=== PATIENT | male | born 1975 | race Hispanic/Latino ===

== ENCOUNTER 2024-03-02 10:40 | Emergency (ER) | payer SELFPAY ==
[2024-03-02 11:11] LABS: Absolute Basophils 0.1 K/uL (0-0.5); Absolute Eosinophils 0.1 K/uL (0-0.5); Absolute Lymphocytes (CBC) 2.3 K/uL (0.7-4.9); Absolute Monocytes 0.8 K/uL (0.1-1.3); Absolute Neutrophil 3.9 K/uL (1.8-8.0); Basophils % 0.9 % (0-1.3); Eosinophils % 1.8 % (0-4.4); Hematocrit 44.6 % (39.6-49.0); Hemoglobin 14.8 g/dL (13.6-17.9); Lymphocytes % 31.8 % (15.3-44.8); MCH 30.9 pg (27.0-35.0); MCHC 33.3 g/dL (32.0-36.0); MCV 92.8 fL (80-100); MPV 9.5 fL (7.6-11.3); Monocytes % 11.4 % (3.3-12.3); Neutrophils % 54.1 % (41.7-73.7); Platelets 222 thou/uL (152-406); RBC Red Blood Cell Count 4.81 M/uL (4.33-5.43); Red Cell Distribution Width 14.1 % (12.1-15.2)
[2024-03-02 11:20] LABS: PT Prothrombin Time 12.5 SECONDS (9.4-12.5); Protime INR 1.14
[2024-03-02 11:35] LABS: ALT/SGPT 85 U/L (16-61); AST/SGOT 31 U/L (15-37); Albumin 4.1 g/dL (3.4-5.0); Albumin/Globulin Ratio 1.1 (1.1-1.8); Alkaline Phosphatase 80 U/L (45-117); Anion Gap 8.5 mEq/L (5.0-15.0); BUN Blood Urea Nitrogen 26 mg/dL (7-18); Bicarbonate 28 mEq/L (21-32); Bilirubin Direct 0.3 mg/dL (0-0.2); Bilirubin Indirect, Calculated 1.6 mg/dL (0.2-0.8); Bilirubin Total 1.9 mg/dL (0.2-1.0); Globulin 3.7 g/dL (2.3-3.5); Glomerular Filtration Rate 67 ml/min (=/>90); Glucose Level 92 mg/dL (74-106); Magnesium 2.2 mg/dL (1.6-2.4); NT PRO-BNP < 5 pg/mL (<125); Potassium 4.5 mEq/L (3.5-5.1); Protein, Total 7.8 g/dL (6.4-8.2); Sodium Level 137 mEq/L (136-145); Troponin High Sensitivity 3.1 pg/mL (<58.9)
--- NOTE | 2024-03-02 12:06 | EDPHYS ---
Physician Documentation [facility] Name: Abdulkadir Baker Age: 48 yrs Sex: Male : 1975 Arrival Date: 03/02/2024 Time: 10:40 Bed 13 Private MD: ED Physician Rubin Matute HPI: 03/02 12:02 This 48 yrs old Male presents to ER via Ambulatory with complaints of Chest sp3 Pain. 12:02 48-year-old male with history of hypertension now presents to the ED with chief sp3 complaint off-and-on chest pain for 2 weeks. Patient saw his regular physician who did an EKG and other unknown blood work. Patient has not had a stress test has not been seen cardiology. He denies any other symptoms including headache, fever, URI symptoms, cough, shortness of breath, back pain, abdominal pain, nausea, vomiting, diarrhea, syncope, near syncope, rash, known sick contacts, prolonged immobilization, calf pain, or any other signs or symptoms on ROS at this time.. Historical: - Allergies: 10:50 No Known Allergies; nj1 - PMHx: 10:50 Hypertensive disorder; nj1 - Immunization history:: Client reports receiving the 2nd dose of the Covid vaccine. - Infectious Disease History:: Denies. - Social history:: Smoking status: Patient denies any tobacco usage or history of. ROS: 12:04 Constitutional: Negative for fever, chills, and weight loss, Eyes: Negative for injury, sp3 pain, redness, and discharge, ENT: Negative for injury, pain, and discharge, Neck: Negative for injury, pain, and swelling, Respiratory: Negative for shortness of breath, cough, wheezing, and pleuritic chest pain, Abdomen/GI: Negative for abdominal pain, nausea, vomiting, diarrhea, and constipation, Back: Negative for injury and pain, MS/Extremity: Negative for injury and deformity, Skin: Negative for injury, rash, and discoloration, Neuro: Negative for headache, weakness, numbness, tingling, and seizure, Psych: Negative for depression, anxiety, suicide ideation, homicidal ideation, and hallucinations, Allergy/Immunology: Negative for hives, rash, and allergies, Endocrine: Negative for neck swelling, polydipsia, polyuria, polyphagia, and marked weight changes, Hematologic/Lymphatic: Negative for swollen nodes, abnormal bleeding, and unusual bruising, 12:04 All other systems are negative, Exam: 11:13 ECG was reviewed by the Attending Physician. EKG demonstrates normal sinus rhythm at 71 sp3 bpm with normal intervals, normal QRS, normal axis, normal ST/T-segment's without evidence of acute ischemia. 12:04 Constitutional: This is a well developed, well nourished patient who is awake, alert, sp3 and in no acute distress. Head/Face: Normocephalic, atraumatic. Eyes: Pupils equal round and reactive to light, extra-ocular motions intact. Lids and lashes normal. Conjunctiva and sclera are non-icteric and not injected. Cornea within normal limits. Periorbital areas with no swelling, redness, or edema. ENT: Nares patent. No nasal discharge, no septal abnormalities noted. External auditory canals are clear. Oropharynx with no redness, swelling, or masses, exudates, or evidence of obstruction, uvula midline. Mucous membranes moist. Neck: Trachea midline, no thyromegaly or masses palpated, and no cervical lymphadenopathy. Supple, full range of motion without nuchal rigidity, or vertebral point tenderness. No Meningismus. Chest/axilla: Normal chest wall appearance and motion. Nontender with no deformity. No lesions are appreciated. Cardiovascular: Regular rate and rhythm with a normal S1 and S2. No gallops, murmurs, or rubs. Normal PMI, no JVD. No pulse deficits. Respiratory: Lungs have equal breath sounds bilaterally, clear to auscultation and percussion. No rales, rhonchi or wheezes noted. No increased work of breathing, no retractions or nasal flaring. Abdomen/GI: Soft, non-tender, with normal bowel sounds. No distension or tympany. No guarding or rebound. No evidence of tenderness throughout. Back: No spinal tenderness. No costovertebral tenderness. Full range of motion. Skin: Warm, dry with normal turgor. Normal color with no rashes, no lesions, and no evidence of cellulitis. MS/ Extremity: Pulses equal, no cyanosis. Neurovascular intact. Full, normal range of motion. Neuro: Awake and alert, GCS 15, oriented to person, place, time, and situation. Cranial nerves II-XII grossly intact. Motor strength 5/5 in all extremities. Sensory grossly intact. Cerebellar exam normal. Normal gait. Psych: Awake, alert, with orientation to person, place and time. Behavior, mood, and affect are within normal limits. Vital Signs: 10:45 BP 128 / 89; Pulse 66; Resp 16; Temp 99.5(O); Pulse Ox 100% ; Weight 104.33 kg; Height nj1 5 ft. 10 in. ; Pain 7/10; 12:18 BP 115 / 65; Pulse 74; Resp 18; Pulse Ox 100% on R/A; mb9 10:45 Body Mass Index 32.93 (104.33 kg, 178 cm) nj1 10:45 Pain Scale: Adult nj1 MDM: 10:41 Patient medically screened. [facility] 12:04 Data reviewed: vital signs, nurses notes, lab test result(s), EKG, radiologic studies. 3 ED course: 48-year-old male with hypertension and now nonspecific chest pain. Symptoms been going on for 2 weeks. Troponin here is negative. Patient has a low heart score and we will safely discharge him home with cardiology follow-up. Clinically I am not highly suspicious for acute coronary syndrome, pulmonary embolism, aortic pathology, or any other critical process at this time.. 03/02 10:51 Order name: Basic Metabolic Panel; Complete Time: 11: 3 03/02 10:51 Order name: CBC with Diff; Complete Time: :03/02 10:51 Order name: LFT's; Complete Time: 11:52 03/02 10:51 Order name: Magnesium; Complete Time: 11:52 03/02 10:51 Order name: NT PRO-BNP; Complete Time: 11:52 03/02 10:51 Order name: PT-INR; Complete Time: 11:52 03/02 10:51 Order name: Troponin HS; Complete Time: 11:52 3 03/02 10:51 Order name: XRAY Chest (1 view); Complete Time: 12:19 3 03/02 10:51 Order name: Cardiac monitoring; Complete Time: 11:59 3 03/02 10:51 Order name: EKG - Nurse/Tech; Complete Time: 11:00 03/02 10:51 Order name: IV Saline Lock; Complete Time: 11:04 03/02 10:51 Order name: Labs collected and sent; Complete Time: 11:04 sp3 03/02 10:51 Order name: O2 Per Protocol; Complete Time: 11:59 sp3 03/02 10:51 Order name: O2 Sat Monitoring; Complete Time: 11:59 sp3 Administered Medications: No medications were administered Disposition Summary: 03/02/24 12:05 Discharge Ordered Notes: Location: Home sp3 Condition: Stable sp3 Diagnosis - Chest pain, unspecified sp3 Followup: sp3 - With: Private Physician - When: Upon discharge from the Emergency Department - Reason: Continuance of care Followup: sp3 - With: Sudhir Rayo MD - When: Upon discharge from the Emergency Department - Reason: Recheck today's complaints Discharge Instructions: - Discharge Summary Sheet sp3 - Nonspecific Chest Pain, Adult sp3 Forms: - Medication Reconciliation Form sp3 - Antibiotic Education sp3 - Prescription Opioid Use sp3 - Patient Portal Instructions sp3 - Leadership Thank You Letter sp3 Signatures: Dispatcher [employer] EDMS Neel Reardon MD MD cha Patel, Setul, MD MD sp3 Bri Caban, JUDI RN nj1 Corrections: (The following items were deleted from the chart) 10:50 10:50 PMHx: None; nj1 nj1
--- NOTE | 2024-03-02 12:06 | ER ---
Nurse's Notes [facility] Name: Abdulkadir Baker Age: 48 yrs Sex: Male : 1975 Arrival Date: 03/02/2024 Time: 10:40 Bed 13 Private MD: Diagnosis: Chest pain, unspecified Presentation: 03/02 10:45 Chief complaint: Patient states: Chest pain on/off for about a week, seen at [facility] twice, given rx for high blood pressure, had ekg's done. Not better. Coronavirus screen: Vaccine status: Patient reports receiving the 2nd dose of the covid vaccine. Ebola Screen: Patient denies travel to an Ebola-affected area in the 21 days before illness onset. Initial Sepsis Screen: Does the patient meet any 2 criteria? No. Patient's initial sepsis screen is negative. Does the patient have a suspected source of infection? No. Patient's initial sepsis screen is negative. Risk Assessment: Do you want to hurt yourself or someone else? Patient reports no desire to harm self or others. Onset of symptoms was February 23, 2024. 10:45 Method Of Arrival: Ambulatory [facility] 10:45 Acuity: BRANDON 3 [facility] Triage Assessment: 10:59 General: Appears in no apparent distress. comfortable, Behavior is calm, cooperative, nj1 appropriate for age. Pain: Complains of pain in chest Pain currently is 7 out of 10 on a pain scale. Neuro: Level of Consciousness is awake, alert, obeys commands, Oriented to person, place, time, situation. Cardiovascular: Rhythm is sinus rhythm Chest pain. Historical: - Allergies: 10:50 No Known Allergies; nj1 - PMHx: 10:50 Hypertensive disorder; nj1 - Immunization history:: Client reports receiving the 2nd dose of the Covid vaccine. - Infectious Disease History:: Denies. - Social history:: Smoking status: Patient denies any tobacco usage or history of. Screenin:58 [facility] ED Fall Risk Assessment (Adult) History of falling in the last 3 months, mb9 including since admission No falls in past 3 months (0 pts) Confusion or Disorientation No (0 pts) Intoxicated or Sedated No (0 pts) Impaired Gait No (0 pts) Mobility Assist Device Used No (0 pt) Altered Elimination No (0 pt) Score/Fall Risk Level 0 - 2 = Low Risk Oriented to surroundings, Maintained a safe environment, Educated pt \T\ family on fall prevention, incl call for assistance when getting out of bed. Abuse screen: Denies threats or abuse. Nutritional screening: No deficits noted. Tuberculosis screening: No symptoms or risk factors identified. Assessment: 12:00 General: Appears in no apparent distress. Behavior is calm, cooperative. Pain: mb9 Complains of pain in chest Pain radiates to left arm Pain currently is 0 out of 10 on a pain scale. Quality of pain is described as pressure, throbbing, Pain began 2-3 days ago. Neuro: Alejo Agitation-Sedation Scale (RASS): 0 - Alert and Calm Level of Consciousness is awake, alert, obeys commands, Oriented to person, place, time, situation, Appropriate for age. Cardiovascular: Heart tones S1 S2 present Patient's skin is warm and dry. Respiratory: Airway is patent Respiratory effort is even, unlabored, Respiratory pattern is regular, symmetrical, Breath sounds are clear bilaterally. GI: No signs and/or symptoms were reported involving the gastrointestinal system. : No signs and/or symptoms were reported regarding the genitourinary system. EENT: No signs and/or symptoms were reported regarding the EENT system. Derm: Skin is pink, warm \T\ dry. Musculoskeletal: Range of motion: intact in all extremities. Vital Signs: 10:45 BP 128 / 89; Pulse 66; Resp 16; Temp 99.5(O); Pulse Ox 100% ; Weight 104.33 kg; Height nj1 5 ft. 10 in. ; Pain 7/10; 12:18 BP 115 / 65; Pulse 74; Resp 18; Pulse Ox 100% on R/A; mb9 10:45 Body Mass Index 32.93 (104.33 kg, 178 cm) nj1 10:45 Pain Scale: Adult nj1 ED Course: 10:41 Patient arrived in ED. mr 10:41 Neel Reardon MD is Attending Physician. jami 10:41 Attending Physician role handed off by Neel Reardon MD sp3 10:41 Rubin Matute MD is Attending Physician. sp3 10:50 Triage completed. nj1 10:50 Arm band placed on left wrist. nj1 11:00 EKG done, by ED staff, reviewed by Rubin Matute MD. nj1 11:00 Initial lab(s) drawn, by me, sent to lab. Inserted saline lock: 20 gauge in left aa5 antecubital area, using aseptic technique. Blood collected. 11:45 XRAY Chest (1 view) In Process Unspecified. EDMS 11:58 Mary Milligan, RN is Primary Nurse. mb9 11:59 Placed in gown. Bed in low position. Call light in reach. Side rails up X 1. Provided mb9 Education on: press call light if needing anything. Client placed on continuous cardiac and pulse oximetry monitoring. NIBP monitoring applied. property assessment monitor on. 12:06 Sudhir Rayo MD is Referral Physician. sp3 12:19 No provider procedures requiring assistance completed. mb9 12:28 IV discontinued, intact, bleeding controlled, No redness/swelling at site. Pressure mb9 dressing applied. Administered Medications: No medications were administered Medication: 12:19 VIS not applicable for this client. mb9 Outcome: 12:05 Discharge ordered by MD. sp3 12:29 Discharged to home ambulatory, mb9 12:29 Condition: stable 12:29 Discharge instructions given to patient, Instructed on discharge instructions, follow up and referral plans. Demonstrated understanding of instructions, follow-up care, 12:29 Patient left the ED. mb9 Signatures: Dispatcher [employer] EDMS Neel Reardon MD MD cha Rivera, Mary, Reg Reg mr RobleroSusan, RN RN aa5 Rubin Matute MD MD sp3 Mary Milligan, RN RN mb9 Bri Caban RN RN nj1 Corrections: (The following items were deleted from the chart) 10:50 10:50 PMHx: None; nj1 nj1
--- NOTE | 2024-03-02 12:18 | RAD REPORT ---
EXAM DESCRIPTION: Swetha Single View03/02/2024 11:44 am CLINICAL HISTORY: CHEST PAIN COMPARISON: No comparisons TECHNIQUE: Portable AP view of the chest. FINDINGS: The lungs are clear. No pneumothorax or effusion. The cardiomediastinal contours are unre markable. IMPRESSION: No acute cardiopulmonary process.
[2024-03-02 12:46] VITALS: BP 115/65; TEMP 99.5; O2SAT 100
--- NOTE | 2024-03-06 13:11 | EKG ---
Test Date: 2024-03-02 Test Time: 10:55:22 Fabric Stretcher: YENNY MEASUREMENT RESULTS: Intervals: Rate: 71 ME: 182 QRSD: 92 QT: 374 QTc: 406 Rose: P: 57 ME: 182 QRS: 88 T: 38 INTERPRETIVE STATEMENTS: Normal sinus rhythm Normal ECG No previous ECG available for comparison Electronically Signed On 03-06-24 13:04:24 CDT by Sudhir Rayo
== END 2024-03-02 12:29 | disposition home or self-care (01) ==
LOC: ER 10:40
DX: R07.9 Chest pain, unspecified (principal)
CPT/HCPCS: 36415; 71045; 80048; 80076; 83735; 83880; 84484; 85025; 85610; 93005; 99284

== ENCOUNTER 2024-03-22 07:20 | Emergency (ER) | payer SELFPAY ==
--- OUTSIDE RECORDS SUMMARY | 2024-03-22 07:23 | XMS REPORT | Continuity of Care Document ---
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
--- NOTE | 2024-03-22 08:07 | RAD REPORT ---
EXAM DESCRIPTION: CT - Head Brain Wo Cont - 03/22/2024 7:57 am CLINICAL HISTORY: Dizziness COMPARISON: None TECHNIQUE: Computed axial tomography of the head was obtained. IV contrast was not requested. All CT scans are performed using dose optimization technique as appropriate and may include automated exposure control or mA/KV adjustment according to patient size. FINDINGS: An intracranial bleed is not seen The ventricles are normal in caliber No extra-axial fluid collection is noted. Mild to moderate low-density areas within periventricular, deep and subcortical white matter likely r epresent ischemic changes secondary to small vessel disease. Near complete opacification right maxillary sinus IMPRESSION: No acute intracranial abnormality is seen Near complete opacification right maxillary sinus consistent with sinusitis If patient's symptoms persist MRI of the brain would be recommended
[2024-03-22 08:11] LABS: Absolute Eosinophils 0.2 K/uL (0-0.5); Absolute Lymphocytes (CBC) 2.3 K/uL (0.7-4.9); Absolute Monocytes 0.7 K/uL (0.1-1.3); Absolute Neutrophil 3.1 K/uL (1.8-8.0); Basophils % 0.7 % (0-1.3); Eosinophils % 3.2 % (0-4.4); Hematocrit 40.5 % (39.6-49.0); Hemoglobin 13.8 g/dL (13.6-17.9); Lymphocytes % 36.8 % (15.3-44.8); MCHC 34.1 g/dL (32.0-36.0); MCV 90.8 fL (80-100); MPV 9.2 fL (7.6-11.3); Monocytes % 10.8 % (3.3-12.3); Neutrophils % 48.5 % (41.7-73.7); Nucleated Red Blood Cells % 0.2 % (0-0); Platelets 191 thou/uL (152-406); RBC Red Blood Cell Count 4.46 M/uL (4.33-5.43)
--- NOTE | 2024-03-22 08:14 | RAD REPORT ---
EXAM DESCRIPTION: CTHead angio03/22/2024 7:57 am CLINICAL HISTORY: Dizziness COMPARISON: none TECHNIQUE: 100 cc Isovue [address] angiogram of the head was obtained. 3D MIPS reconstruction performed. All CT scans are performed using dose optimization technique as appropriate and may include automated exposure control or mA/KV adjustment according to patient size. FINDINGS: The distal internal carotid, basilar, anterior cerebral, middle cerebral and posterior cer ebral arteries do not demonstrate a significant stenosis origin left posterior cerebral artery An aneurysm is not seen No large vessel occlusion IMPRESSION: No significant vascular abnormality is displayed
--- NOTE | 2024-03-22 08:15 | RAD REPORT ---
EXAM DESCRIPTION: Chris Angio03/22/2024 7:57 am CLINICAL HISTORY: Dizziness COMPARISON: None TECHNIQUE: 100 cc Isovue [address] angiogram of the neck was obtained. 3D MIPS reconstruction performed. All CT scans are performed using dose optimization technique as appropriate and may include automated exposure control or mA/KV adjustment according to patient size. FINDINGS: Visualized great vessels unremarkable Common carotid, internal carotid and external carotid arteries bilaterally unremarkable Vertebral arteries unremarkable No dissection is seen. No high-grade stenosis Nascet crieria Mild stenosis 0 to 49 % Moderate stenosis 50-69% Severe stenosis 70-99% IMPRESSION: No significant vascular abnormality is displayed
[2024-03-22 08:16] LABS: PT Prothrombin Time 12.4 SECONDS (9.4-12.5); Protime INR 1.13
[2024-03-22 08:29] LABS: Albumin/Globulin Ratio 1.1 (1.1-1.8); Anion Gap 7.1 mEq/L (5.0-15.0); Bilirubin Direct 0.3 mg/dL (0-0.2); Bilirubin Indirect, Calculated 1.1 mg/dL (0.2-0.8); Bilirubin Total 1.4 mg/dL (0.2-1.0); Globulin 3.6 g/dL (2.3-3.5); Magnesium 2.2 mg/dL (1.6-2.4); Potassium 4.1 mEq/L (3.5-5.1); Protein, Total 7.6 g/dL (6.4-8.2); Troponin High Sensitivity 5.3 pg/mL (<58.9)
--- NOTE | 2024-03-22 08:29 | RAD REPORT ---
EXAM DESCRIPTION: Swetha Single View03/22/2024 8:03 am CLINICAL HISTORY: Cough COMPARISON: none FINDINGS: The lungs appear clear of acute infiltrate. The heart is normal size IMPRESSION: No acute abnormalities displayed
[2024-03-22] MEDS ORDERED: NA CHLORIDE 0.9% 1,000 ML ONE (08:41)
--- NOTE | 2024-03-22 08:44 | ER ---
Nurse's Notes [facility] Name: Abdulkadir Baker Age: 48 yrs Sex: Male : 1975 Arrival Date: 03/22/2024 Time: 07:20 Bed 5 Private MD: Diagnosis: Dizziness and giddiness;Essential (primary) hypertension;Other acute sinusitis Presentation: 03/22 07:35 Chief complaint: Chief complaint: Patient states: Feels dizzy and weak since starting ll1 lisinopril 2 weeks ago. 07:37 Coronavirus screen: Client denies travel out of the [place] in the last 14 days. At this ll1 time, the client does not indicate any symptoms associated with coronavirus-19. Ebola Screen: Patient denies travel to an Ebola-affected area in the 21 days before illness onset. Initial Sepsis Screen: Does the patient meet any 2 criteria? No. Patient's initial sepsis screen is negative. Does the patient have a suspected source of infection? No. Patient's initial sepsis screen is negative. Risk Assessment: Do you want to hurt yourself or someone else? Patient reports no desire to harm self or others. Onset of symptoms was March 02, 2024. 07:37 Method Of Arrival: Ambulatory ll1 07:37 Acuity: BRANDON 3 ll1 Triage Assessment: 07:35 General: Appears uncomfortable, Behavior is cooperative, appropriate for age, anxious. ll1 Pain: Denies pain. Neuro: Reports headache a syncopal episode weakness. Historical: - Allergies: 07:26 No Known Allergies; ll1 - PMHx: 07:26 Hypertensive disorder; ll1 - PSHx: 07:34 None; ll1 - Immunization history:: Adult Immunizations. - Infectious Disease History:: Denies. - Social history:: Smoking status: Patient denies any tobacco usage or history of. - Family history:: not pertinent. Screenin:09 [facility] ED Fall Risk Assessment (Adult) History of falling in the last 3 months, ld1 including since admission No falls in past 3 months (0 pts) Confusion or Disorientation No (0 pts) Intoxicated or Sedated No (0 pts) Impaired Gait No (0 pts) Mobility Assist Device Used No (0 pt) Altered Elimination No (0 pt) Score/Fall Risk Level 0 - 2 = Low Risk Oriented to surroundings, Maintained a safe environment, Educated pt \T\ family on fall prevention, incl call for assistance when getting out of bed, Assessed \T\ reinforced patient's understanding of fall precautions, Provided non-skid footwear, Hourly rounding (assess needs \T\ fall precautionary measures) done, Used ambulatory aids as needed (educated on \T\ assisted with), Used gait belt as appropriate. Abuse screen: Denies threats or abuse. Denies injuries from another. Nutritional screening: No deficits noted. Tuberculosis screening: No symptoms or risk factors identified. Assessment: 09:09 General: Appears in no apparent distress. comfortable, Behavior is calm, cooperative, ld1 appropriate for age. Pain: Denies pain. Neuro: Level of Consciousness is awake, alert, obeys commands, Oriented to person, place, time, situation. Cardiovascular: Capillary refill < 3 seconds Patient's skin is warm and dry. Respiratory: Airway is patent Respiratory effort is even, unlabored. GI: Abdomen is round non-distended. : No signs and/or symptoms were reported regarding the genitourinary system. EENT: No signs and/or symptoms were reported regarding the EENT system. Derm: No signs and/or symptoms reported regarding the dermatologic system. Musculoskeletal: No signs and/or symptoms reported regarding the musculoskeletal system. 09:11 Reassessment: Discharge pending IV fluids. ld1 09:27 Reassessment: Patient appears in no apparent distress at this time. Patient and/or iw family updated on plan of care and expected duration. Pain level reassessed. Patient is alert, oriented x 3, equal unlabored respirations, skin warm/dry/pink. Vital Signs: 07:37 BP 134 / 88; Pulse 86; Resp 16; Temp 97.4; Pulse Ox 98% on R/A; Pain 0/10; ll1 09:09 BP 129 / 76; Pulse 84; Resp 18; Pulse Ox 99% on R/A; ld1 09:27 BP 134 / 80; Pulse 74; Resp 16; Pulse Ox 98% on R/A; Pain 0/10; iw 07:37 Pain Scale: Adult ll1 09:27 Pain Scale: Adult iw ED Course: 07:25 Patient arrived in ED. im 07:26 Arm band placed on Patient placed in an exam room, on a stretcher. ll1 07:29 Alexys, Neel, MD is Attending Physician. jami 07:34 Hedy Bennett, RN is Primary Nurse. iw 07:39 Triage completed. ll1 07:51 Initial lab(s) drawn, by me, sent to lab. Inserted saline lock: 20 gauge in left iw antecubital area, using aseptic technique. Blood collected. 07:57 CT Head Brain wo Cont In Process Unspecified. EDMS 07:58 CT Neck Angio In Process Unspecified. EDMS 07:58 Head angio In Process Unspecified. EDMS 08:04 XRAY Chest (1 view) In Process Unspecified. EDMS 08:05 EKG done, by ED staff, reviewed by Neel Reardon MD. em1 08:42 Sudhir Rayo MD is Referral Physician. jami 08:42 Kaiden Zamudio MD is Referral Physician. jami 09:09 Patient has correct armband on for positive identification. Placed in gown. Bed in low ld1 position. Call light in reach. Side rails up X2. school psychologist assistant on. Pulse ox on. NIBP on. Door closed. Noise minimized. Warm blanket given. 09:09 No provider procedures requiring assistance completed. ld1 09:24 IV discontinued, intact, bleeding controlled, No redness/swelling at site. Pressure iw dressing applied. 09:28 Provided Education on: d/c instructions. iw 09:48 Primary Nurse role handed off by Hedy Bennett, RN eb Administered Medications: 09:28 Discontinued: ns 0.9% 1000 ml IV at 1 bolus Per protocol; 1000 mL bolus iw 09:09 Drug: NS 0.9% IV 1000 ml IV at 1 bolus Per protocol; 1000 mL bolus Route: IV; Rate: 1 ld1 bolus; Site: right antecubital; 09:09 Drug: Aspirin PO Chewable Tablet 81 mg PO once Route: PO; ld1 09:28 Follow up: Response: No adverse reaction iw Medication: 09:09 VIS not applicable for this client. ld1 Outcome: 08:43 Discharge ordered by . jami 09:28 Discharged to home ambulatory, iw 09:28 Condition: good 09:28 Discharge instructions given to patient, Instructed on discharge instructions, follow up and referral plans. medication usage, Demonstrated understanding of instructions, follow-up care, medications, Prescriptions given X 3, 09:29 Patient left the ED. iw 09:50 Patient left the ED. em1 Signatures: Dispatcher [employer] EDNeel Elias MD MD cha Williams, Irene, RN RN iw Ward Harris em1 Rosio Hou Lynsay, RN RN ll1 Shalini Olivarez RN RN ld1 Debra Orozco Corrections: (The following items were deleted from the chart) 07:39 07:35 Chief complaint: ll1 ll1 08:18 07:34 Social history: Smoking status: Patient denies any tobacco usage or history of. ll1 ll1 08:18 07:34 Social history: Smoking status: Patient reports the use of cigarette tobacco ll1 products, smokes one pack cigarettes per day. ll1
--- NOTE | 2024-03-22 08:44 | EDPHYS ---
Physician Documentation [facility] Name: Abdulkadir Baker Age: 48 yrs Sex: Male : 1975 Arrival Date: 03/22/2024 Time: 07:20 Bed 5 Private MD: ED Physician Neel Reardon HPI: 03/22 07:38 This 48 yrs old Male presents to ER via Unassigned with complaints of jami Dizziness, General Weakness. 07:38 The patient presents with dizziness, sense of spinning. Onset: The symptoms/episode jami began/occurred 14 day(s) ago. Context: occurred while the patient was non specific. Modifying factors: The symptoms are alleviated by nothing, the symptoms are aggravated by nothing. Associated signs and symptoms: Pertinent positives: dizziness. Severity of symptoms: in the emergency department the symptoms are unchanged. Patient's baseline: Neuro:. Historical: - Allergies: 07:26 No Known Allergies; ll1 - PMHx: 07:26 Hypertensive disorder; ll1 - PSHx: 07:34 None; ll1 - Immunization history:: Adult Immunizations. - Infectious Disease History:: Denies. - Social history:: Smoking status: Patient denies any tobacco usage or history of. - Family history:: not pertinent. ROS: 07:38 Constitutional: Negative for fever, chills, and weight loss, Eyes: Negative for injury, jami pain, redness, and discharge, ENT: Negative for injury, pain, and discharge, Neck: Negative for injury, pain, and swelling, Cardiovascular: Negative for chest pain, palpitations, and edema, Respiratory: Negative for shortness of breath, cough, wheezing, and pleuritic chest pain, Abdomen/GI: Negative for abdominal pain, nausea, vomiting, diarrhea, and constipation, Back: Negative for injury and pain, : Negative for injury, bleeding, discharge, and swelling, MS/Extremity: Negative for injury and deformity, Skin: Negative for injury, rash, and discoloration, Psych: Negative for depression, anxiety, suicide ideation, homicidal ideation, and hallucinations, Allergy/Immunology: Negative for hives, rash, and allergies, Endocrine: Negative for neck swelling, polydipsia, polyuria, polyphagia, and marked weight changes, Hematologic/Lymphatic: Negative for swollen nodes, abnormal bleeding, and unusual bruising, 07:38 Neuro: Positive for dizziness, Exam: 07:38 Constitutional: This is a well developed, well nourished patient who is awake, alert, jami and in no acute distress. Head/Face: Normocephalic, atraumatic. Eyes: Pupils equal round and reactive to light, extra-ocular motions intact. Lids and lashes normal. Conjunctiva and sclera are non-icteric and not injected. Cornea within normal limits. Periorbital areas with no swelling, redness, or edema. ENT: Nares patent. No nasal discharge, no septal abnormalities noted. Tympanic membranes are normal and external auditory canals are clear. Oropharynx with no redness, swelling, or masses, exudates, or evidence of obstruction, uvula midline. Mucous membranes moist. Neck: Trachea midline, no thyromegaly or masses palpated, and no cervical lymphadenopathy. Supple, full range of motion without nuchal rigidity, or vertebral point tenderness. No Meningismus. Chest/axilla: Normal chest wall appearance and motion. Nontender with no deformity. No lesions are appreciated. Cardiovascular: Regular rate and rhythm with a normal S1 and S2. No gallops, murmurs, or rubs. Normal PMI, no JVD. No pulse deficits. Respiratory: Lungs have equal breath sounds bilaterally, clear to auscultation and percussion. No rales, rhonchi or wheezes noted. No increased work of breathing, no retractions or nasal flaring. Abdomen/GI: Soft, non-tender, with normal bowel sounds. No distension or tympany. No guarding or rebound. No evidence of tenderness throughout. Back: No spinal tenderness. No costovertebral tenderness. Full range of motion. Male : Normal genitalia with no discharge or lesions. Skin: Warm, dry with normal turgor. Normal color with no rashes, no lesions, and no evidence of cellulitis. MS/ Extremity: Pulses equal, no cyanosis. Neurovascular intact. Full, normal range of motion. Neuro: Awake and alert, GCS 15, oriented to person, place, time, and situation. Cranial nerves II-XII grossly intact. Motor strength 5/5 in all extremities. Sensory grossly intact. Cerebellar exam normal. Normal gait. Psych: Awake, alert, with orientation to person, place and time. Behavior, mood, and affect are within normal limits. 08:15 ECG was reviewed by the Attending Physician. [facility] Vital Signs: 07:37 BP 134 / 88; Pulse 86; Resp 16; Temp 97.4; Pulse Ox 98% on R/A; Pain 0/10; ll1 09:09 BP 129 / 76; Pulse 84; Resp 18; Pulse Ox 99% on R/A; ld1 09:27 BP 134 / 80; Pulse 74; Resp 16; Pulse Ox 98% on R/A; Pain 0/10; iw 07:37 Pain Scale: Adult ll1 09:27 Pain Scale: Adult iw MDM: 07:29 Patient medically screened. jami 07:41 Differential diagnosis: cardiac arrhythmia, generalized weakness, hypovolemia, jami idiopathic dizziness, near-syncope, vertigo. Data reviewed: vital signs, nurses notes, lab test result(s), EKG, radiologic studies, CT scan, plain films. Consideration of Admission/Observation Escalation of care including admission/observation considered. I considered the following discharge prescriptions or medication management in the emergency department Medications were administered in the Emergency Department. See MAR. Independent interpretation of the following test(s) in the Emergency Department EKG: See my EKG interpretation above. Test considered but Not performed: MRI: no mri brain. Historians other than the Patient: pt well informed. Care significantly affected by the following chronic conditions: Hypertension, left eye injury, deaviated. 03/22 07:37 Order name: Basic Metabolic Panel; Complete Time: 08:42 03/22 07:37 Order name: CBC with Diff; Complete Time: 08:42 03/22 07:37 Order name: LFT's; Complete Time: 08:42 03/22 07:37 Order name: Magnesium; Complete Time: 08:42 03/22 07:37 Order name: NT PRO-BNP; Complete Time: 08:42 03/22 07:37 Order name: PT-INR; Complete Time: 08:42 03/22 07:37 Order name: Troponin HS; Complete Time: 08:42 03/22 07:37 Order name: XRAY Chest (1 view); Complete Time: 08:42 [facility] 03/22 07:37 Order name: CT Head Brain wo Cont; Complete Time: 08:42 [facility] 03/22 07:37 Order name: CT Neck Angio; Complete Time: 08:42 [facility] 03/22 07:43 Order name: Head angio; Complete Time: 08:42 EDMS 03/22 07:37 Order name: Cardiac monitoring; Complete Time: 08:05 jami 03/22 07:37 Order name: EKG - Nurse/Tech; Complete Time: 08:05 jami 03/22 07:37 Order name: IV Saline Lock; Complete Time: 07:51 [facility] 03/22 07:37 Order name: Labs collected and sent; Complete Time: [facility] 03/22 07:37 Order name: O2 Per Protocol; Complete Time: [facility] 03/22 07:37 Order name: O2 Sat Monitoring; Complete Time: : [facility] EC:15 Rate is 66 beats/min. Rhythm is regular. QRS [place] is Normal. ND interval is prolonged jami at 415 msec. QRS interval is normal. QT interval is normal. No Q waves. T waves are Normal. No ST changes noted. Clinical impression: NSR w/ Non-specific ST/T Changes, 1st degree heart block, and No evidence of ischemia. Administered Medications: 09:28 Discontinued: ns 0.9% 1000 ml IV at 1 bolus Per protocol; 1000 mL bolus iw 09:09 Drug: NS 0.9% IV 1000 ml IV at 1 bolus Per protocol; 1000 mL bolus Route: IV; Rate: 1 ld1 bolus; Site: right antecubital; 09:09 Drug: Aspirin PO Chewable Tablet 81 mg PO once Route: PO; ld1 09:28 Follow up: Response: No adverse reaction iw Disposition Summary: 03/22/24 08:43 Discharge Ordered Notes: Location: Home jami Problem: new jami Symptoms: have improved jami Condition: Fair jami Diagnosis - Dizziness and giddiness jami - Essential (primary) hypertension jami - Other acute sinusitis jami Followup: jami - With: Private Physician - When: 2 - 3 days - Reason: Recheck today's complaints, Continuance of care, Re-evaluation by your physician Followup: jami - With: Sudhir Rayo MD - When: 2 - 3 days - Reason: Recheck today's complaints, Re-evaluation by your physician Followup: jami - With: Kaiden Zamudio MD - When: 2 - 3 days - Reason: Recheck today's complaints, Re-evaluation by your physician Discharge Instructions: - Discharge Summary Sheet jami - Dizziness jami - Hypertension, Adult jami - Sinusitis, Adult jami - Hypertension, Adult, [id number] jami - How to Take Your Blood Pressure, [id number] jami - Aspirin and Your Heart jami - Managing Your Hypertension jami Forms: - Medication Reconciliation Form jami - Antibiotic Education jami - Prescription Opioid Use jami - Patient Portal Instructions jami - Leadership Thank You Letter [facility] Prescriptions: - Meclizine 25 mg Oral Tablet - take 1 tablet ORAL route every 8 hours As needed; 30 tablet; Refills: 0, jami Product Selection Permitted - Norvasc 5 mg Oral Tablet - take 1 tablet ORAL route once daily; 20 tablet; Refills: 0, Product Selection jami Permitted - Bactrim DS 800-160 mg Oral Tablet - take 1 tablet ORAL route every 12 hours for 10 days; 20 tablet; Refills: 0, jami Product Selection Permitted Signatures: Dispatcher [employer] EDMS Neel Reardon MD MD cha Lewis, Lynsay, RN RN ll1 Shalini Olivarez RN RN ld1 Hedy Bennett RN iw Corrections: (The following items were deleted from the chart) 07:38 07:38 BASIC METABOLIC PANEL+C.LAB.BRZ ordered. EDMS EDMS 07:38 07:38 CBC+H.LAB.BRZ ordered. EDMS EDMS 07:38 07:38 HEPATIC FUNCTION+C.LAB.BRZ ordered. EDMS EDMS 07:38 07:38 MAGNESIUM+C.LAB.BRZ ordered. EDMS EDMS 07:38 07:38 PROBNP+C.LAB.BRZ ordered. EDMS EDMS 07:38 07:38 PROTIME (+INR)+COAG.LAB.BRZ ordered. EDMS EDMS 07:38 07:38 Troponin High Sensitivity+C.LAB.BRZ ordered. EDMS EDMS 07:38 07:38 Urinalysis+U.LAB.BRZ ordered. EDMS EDMS 07:38 07:38 Head Brain Wo Cont+CT.RAD.BRZ ordered. EDMS EDMS 07:38 07:38 Neck Angio+CT.RAD.BRZ ordered. EDMS EDMS 08:18 07:34 Social history: Smoking status: Patient denies any tobacco usage or history of. ll1 ll1 08:18 07:34 Social history: Smoking status: Patient reports the use of cigarette tobacco ll1 products, smokes one pack cigarettes per day. ll1
[2024-03-22] MEDS ORDERED: ASPIRIN 81 MG CHEWABLE TABLET ONE (09:07)
[2024-03-22 09:54] VITALS: TEMP 97.4
[2024-03-22 10:11] VITALS: BP 134/80; O2SAT 98
--- NOTE | 2024-03-23 10:57 | EKG ---
Test Date: 2024-03-22 Test Time: 08:03:25 It Desktop Support Technician: BILL MEASUREMENT RESULTS: Intervals: Rate: 66 WA: 210 QRSD: 90 QT: 396 QTc: 415 [place]: P: 62 WA: 210 QRS: 78 T: 51 INTERPRETIVE STATEMENTS: Sinus rhythm with 1st degree AV block Otherwise normal ECG Compared to ECG 03/02/2024 10:55:22 First degree AV block now present Electronically Signed On 03-23-24 10:55:04 CDT by Aj Broussard
== END 2024-03-22 09:50 | disposition home or self-care (01) ==
LOC: ER 07:20
DX: J01.80 Other acute sinusitis (principal); I10 Essential (primary) hypertension
CPT/HCPCS: 36415; 70450; 70496; 70498; 71045; 80048; 80076; 82565; 83735; 83880; 84484; 85025; 85610; 93005; 99285; J7030; Q9967